=== PATIENT | male | born 1950 | race African-American/Black ===

== ENCOUNTER 2018-06-06 20:26 | Emergency (ER) | payer MEDICARE, OTHER ==
[~2018-06-06] VITALS: Ht 170.2 cm; Wt 81.6 kg
[~2018-06-06 20:26] MED LIST: ATORVASTATIN CA40 MG ORAL; FUROSEMIDE20 M1 ORAL; IMDUR30 MG ORAL; LISINOPRIL10 MG ORAL; METOPROLOL SUC100 MG ORAL; PLAVIX75 MG ORAL; UNOBMED
[2018-06-06 21:00] VITALS: BP 180/94
[2018-06-06] MEDS ORDERED: Ketorolac 30mg Inj IV ONE (21:15)
--- NOTE | 2018-06-06 21:20 | Emergency Room Report ---
History of Present Illness General Chief Complaint: Abdominal Pain Source: Patient, Family Member, Medical Record Present Illness HPI Is a 67-year-old male with history of CAD, CVA, high blood pressure presents with chief complaint abdominal pain with nausea vomiting and diarrhea. Onset for one day. Unable to keep anything down. Did not take his blood pressure today because vomiting. Pain is crampy in nature. Vomiting is nonbloody nonbilious. Diarrhea is watery. No sick contact. No recent antibiotics. Eating made it worse. Nothing made it better. Pain is 5 out of 10. No radiation. Allergies: Coded Allergies: No Known Allergies (Unverified , 06/06/18) Patient History Past Medical History: see triage record, old chart reviewed, HTN, CAD, CVA/TIA Past Surgical History: other Pertinent Family History: none Social History: Denies: smoking Immunizations: other Reviewed Nursing Documentation: PMH: Agreed; PSxH: Agreed Nursing Documentation-PMH Past Medical History: No History, Except For Hx Cardiac Problems: Yes Hx Hypertension: Yes Hx Cancer: No Hx Gastrointestinal Problems: Yes Hx Neurological Problems: Yes Hx Cerebrovascular Accident: Yes - 2008 and 2012; Right side weakness Hx Transient Ischemic Attacks: Yes - Stroke Hx Head Trauma: Yes - 1970 in the [employer] Hx 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 Hx Dizziness: Yes Hx Syncope: Yes Review of Systems Eye: Denies: eye pain, blurred vision ENT: Denies: ear pain, nose congestion, throat swelling Respiratory: Denies: cough, shortness of breath Cardiovascular: Denies: chest pain, palpitations Gastrointestinal: Reports: abdominal pain, diarrhea, nausea, vomiting Musculoskeletal: Denies: back pain, joint pain Skin: Denies: rash Neurological: Denies: headache, numbness Endocrine: Denies: increased thirst, increased urine Hematologic/Lymphatic: Denies: easy bruising All Other Systems: negative except mentioned in HPI Physical Exam Vital Signs Date Time Temp Pulse Resp B/P (MAP) Pulse Ox O2 Delivery O2 Flow Rate FiO2 06/06/18 20:51 98.0 75 15 169/129 96 Room Air 98.1 vitals with high blood pressure Sp02 EP Interpretation: reviewed, normal General Appearance: well appearing, no apparent distress, alert Head: normocephalic, atraumatic Eyes: bilateral eye PERRL, bilateral eye EOMI ENT: hearing grossly normal, normal pharynx Neck: full range of motion, supple, no meningismus Respiratory: chest non-tender, lungs clear, normal breath sounds Cardiovascular #1: regular rate, rhythm, no murmur Gastrointestinal: non tender, no mass, no organomegaly, no bruit, non-distended , abnormal bowel sounds - increased Musculoskeletal: back normal, gait/station normal, normal range of motion Psychiatric: mood/affect normal Skin: warm/dry Medical Decision Making Diagnostic Impression: Primary Impression: Nausea vomiting and diarrhea Additional Impressions: Hypertension Qualified Codes: I10 - Essential (primary) hypertension Renal insufficiency ER Course Patient with vomiting and diarrhea. This is consistent with a gastroenteritis. No evidence of acute abdomen or obstruction. No evidence of bacterial infection. Patient felt better now. We'll discharge home. Lab Results Impression labs with renal insufficiency Last Vital Signs Date Time Temp Pulse Resp B/P (MAP) Pulse Ox O2 Delivery O2 Flow Rate FiO2 06/06/18 20:51 98.0 75 15 169/129 96 Room Air 98.1 Status: improved Disposition: HOME, SELF-CARE Condition: Stable Scripts Ondansetron (Zofran) 4 Mg Tablet 4 MG ORAL Q6H PRN for Nausea & Vomiting, #10 TAB 0 Refills Prov: Taco Veronica MD 06/06/18 Additional Instructions: Follow-up with your Dr. in 2 to 3 days of not better. Return if symptom worsen. Advance diet as tolerated. Taco Veronica MD Jun 06, 2018 21:20
[2018-06-06 22:19] LABS: BASOPHILS % (AUTO) 1.2 % (0.0-2.0); EOSINOPHILS % (AUTO) 0.7 % (0.0-3.0); HEMATOCRIT 49.2 % (42.0-52.0); LYMPHOCYTES % (AUTO) 32.5 % (20.0-45.0); MEAN CORPUSCULAR VOLUME 95 FL (80-99); MONOCYTES % (AUTO) 7.9 % (1.0-10.0); NEUTROPHILS % (AUTO) 57.7 % (45.0-75.0); PLATELET COUNT 273 K/UL (150-450); RED BLOOD COUNT 5.18 M/UL (4.70-6.10); RED CELL DISTRIBUTION WIDTH 12.7 % (11.6-14.8); WHITE BLOOD COUNT 8.1 K/UL (4.8-10.8)
[2018-06-06 22:20] LABS: ANION GAP 8 mmol/L (5-15); BLOOD UREA NITROGEN 24 mg/dL (7-18); CARBON DIOXIDE 26 MMOL/L (21-32); CHLORIDE 109 MMOL/L (98-107); POTASSIUM 4.3 MMOL/L (3.5-5.1); SODIUM 143 MMOL/L (136-145)
[2018-06-06 22:24] LABS: ALANINE AMINOTRANSFERASE 40 U/L (12-78); ALBUMIN 3.9 G/DL (3.4-5.0); ALBUMIN/GLOBULIN RATIO 0.9 (1.0-2.7); ALKALINE PHOSPHATASE 95 U/L (46-116); ASPARTATE AMINO TRANSFERASE 31 U/L (15-37); BILIRUBIN,TOTAL 0.7 MG/DL (0.2-1.0)
[2018-06-06] MEDS ORDERED: ZOFRAN4 MG ORAL (22:25)
[2018-06-06 22:38] VITALS: BP 169/80
== END 2018-06-06 22:35 | disposition home or self-care (01) ==
LOC: EMR 21:15
DX: R11.2 Nausea with vomiting, unspecified (principal); R19.7 Diarrhea, unspecified; I10 Essential (primary) hypertension; I69.351 Hemiplegia and hemiparesis following cerebral infarction affecting right dominant side; N28.9 Disorder of kidney and ureter, unspecified; I25.10 Atherosclerotic heart disease of native coronary artery without angina pectoris
CPT/HCPCS: 36415; 80053; 83690; 85025; 96361; 96374; 96375; 99284; J0360; J1885; J2405